=== PATIENT | female | born 1940 | race Caucasian/White ===

== ENCOUNTER 2017-06-07 00:16 | Emergency (ER) | payer MEDICARE, MEDICAID ==
--- NOTE | 2017-06-07 00:43 | C.PDOC ---
History Of Present Illness Patient presents to the ER with a complaint of right sided chest wall pain after she tripped and fell on the floor 2 days ago. Patient reports it hurts to move and notes she is unable to get up due to pain. Denies LOC, fever, chills, nausea, or vomiting. Time Seen by Provider: 06/07/17 00:42 Chief Complaint (Nursing): Back Pain History Per: Patient History/Exam Limitations: no limitations Onset/Duration Of Symptoms: Days Current Symptoms Are (Timing): Still Present Quality Of Discomfort: Unable To Describe Severity: Moderate Pain Scale Rating Of: 4 Previous Symptoms: None Associated Symptoms: None Exacerbating Factor(s): Movement Recent travel outside of the [place]: No Past Medical History Reviewed: Historical Data, Nursing Documentation, Vital Signs Vital Signs: Last Vital Signs Temp 98.5 F 06/07/17 00:23 Pulse 78 06/07/17 00:23 Resp 16 06/07/17 00:23 BP 163/82 H 06/07/17 00:23 Pulse Ox 99 06/07/17 01:01 - Medical History PMH: HTN, Hypercholesterolemia Family History: States: No Known Family Hx - Social History Hx Alcohol Use: No Hx Substance Use: No - Immunization History Hx Influenza Vaccination: No Hx Pneumococcal Vaccination: No Review Of Systems Constitutional: Negative for: Fever, Chills Respiratory: Negative for: Shortness of Breath Gastrointestinal: Negative for: Nausea, Vomiting, Abdominal Pain Musculoskeletal: Positive for: Other (Chest wall pain) Physical Exam - Physical Exam Appears: Non-toxic Skin: Warm, Dry Head: Normacephalic Eye(s): bilateral: Normal Inspection Oral Mucosa: Moist Chest: Symmetrical, Tenderness (On right mid axillary line. No crepitus palpated.), Other (no rashes/vesicles) Cardiovascular: Rhythm Regular Respiratory: No Rales, No Rhonchi, No Wheezing Gastrointestinal/Abdominal: Soft, No Tenderness Neurological/Psych: Oriented x3 ED Course And Treatment O2 Sat by Pulse Oximetry: 99 (room air) Pulse Ox Interpretation: Normal Progress Note: CT chest ordered. Motrin administered. Reevaluation Time: 02:31 Reassessment Condition: Improved Disposition Counseled Patient/Family Regarding: Studies Performed, Diagnosis, Need For Followup, Rx Given - Disposition Referrals: Edson Mi MD [Staff Provider] - Disposition: HOME/ ROUTINE Disposition Time: 00:43 Condition: FAIR Additional Instructions: Please return if symptoms recur Prescriptions: Naproxen [Naprosyn] 1 tab PO BID PRN #25 tab PRN Reason: Pain Instructions: Contusion in Adults (DC), Chest Wall Pain (ED) Forms: [facility] ([place]) - Clinical Impression Clinical Impression: Fall, Chest wall pain - Scribe Statement The provider has reviewed the documentation as recorded by the Scribe Shaun Flores All medical record entries made by the Chandleribepifanio were at my direction and personally dictated by me. I have reviewed the chart and agree that the record accurately reflects my personal performance of the history, physical exam, medical decision making, and the department course for this patient. I have also personally directed, reviewed, and agree with the discharge instructions and disposition.
--- NOTE | 2017-06-07 02:21 | CT ---
EXAM: CT Chest Without Intravenous Contrast CLINICAL HISTORY: 76 years old, female; Pain; Chest pain and chest wall pain and other: Lower right ribs; Additional info: Fall, r rib/chest wall pain TECHNIQUE: Axial computed tomography images of the chest without intravenous contrast. All CT scans at this facility use one or more dose reduction techniques, viz.: automated exposure control; ma/kV adjustment per patient size (including targeted exams where dose is matched to indication; i.e. head); or iterative reconstruction technique. 515 images are submitted. Coronal and sagittal reformatted images were created and reviewed. COMPARISON: No relevant prior studies available. FINDINGS: Artifacts: Limited due to motion and misregistration artifacts. Lungs: Mild parabronchial cuffing, which can be seen with bronchitis, reactive airway disease or viral pneumonitis versus mild failure.Bibasilar mild patchy nonspecific infiltrates are present, consistent with atelectasis or pneumonia. Nonspecific biapical pleural-parenchymal changes which represent sequela of infectious or inflammatory etiology. Pleural space: Unremarkable. No pneumothorax. No significant effusion. Heart: Trace fluid in the superior pericardial recess. Small pericardial effusion. Mediastinum: Small hiatal hernia. Bones/joints: No definite acute displaced right rib fractures are identified. There may be possible subtle fracture of the right 11th rib laterally. Vertebral body hemangioma at L3. 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 No dislocation. Soft tissues: Unremarkable. Vasculature: The aorta demonstrates calcified plaque and is mildly ectatic but normal in caliber. No thoracic aortic aneurysm. Lymph nodes: Unremarkable. No enlarged lymph nodes. Adrenals: Left adrenal nodule measuring 1.7 cm with mean Hounsfield unit of -5 representing an adrenal adenoma. Upper abdomen: Partially contracted gallbladder with gallbladder wall prominence in pericholecystic haziness versus motion. IMPRESSION: 1. Mild parabronchial cuffing, which can be seen with bronchitis, reactive airway disease or viral pneumonitis versus mild failure.Bibasilar mild patchy nonspecific infiltrates are present, consistent with atelectasis or pneumonia. 2. No definite acute displaced right rib fractures are identified. There may be possible subtle fracture of the right 11th rib laterally.
[2017-06-07 02:59] VITALS: BP 150/80; PULSE 82; RESP 20; TEMP 98; O2SAT 98
== END 2017-06-07 02:57 | disposition home or self-care (01) ==
LOC: C.ER 00:16
DX: R07.89 Other chest pain (principal); E78.00 Pure hypercholesterolemia, unspecified; I10 Essential (primary) hypertension